=== PATIENT | female | born 1955 | race Caucasian/White ===

== ENCOUNTER → 2018-09-02 | Outpatient (CLI) | payer OTHER | LOC: MC.RAD 07:53 | DX: Z12.31 Encounter for screening mammogram for malignant neoplasm of breast (principal); Z98.890 Other specified postprocedural states ==

== ENCOUNTER → 2019-09-22 | Outpatient (CLI) | payer OTHER | LOC: MC.RAD 08:39 | DX: Z12.31 Encounter for screening mammogram for malignant neoplasm of breast (principal) ==

== ENCOUNTER → 2020-09-27 | Outpatient (CLI) | payer MEDICARE, OTHER | LOC: MC.RAD 09:29 | DX: Z12.31 Encounter for screening mammogram for malignant neoplasm of breast (principal) ==

== ENCOUNTER 2021-10-27 08:45 | Outpatient (CLI) | payer MEDICARE, OTHER ==
[2021-10-27] VITALS (8 sets, daily range): BP systolic 132–1362; BP diastolic 63–80; PULSE 50–84; TEMP 98.7
[2021-10-27] MEDS ORDERED: NORVASC 5MG5 MG/TAB PO (09:44)
[2021-10-27] MEDS ORDERED: XALATAN EYE DROPS OD (09:45)
[2021-10-27] MEDS ORDERED: PROZAC 10MG10 MG PO (09:45)
[2021-10-27] MEDS ORDERED: CALCIUM 600-D 61 TAB PO (09:46)
[2021-10-27] MEDS ORDERED: VITAMIN B12 1541 TAB PO (09:46)
[2021-10-27] MEDS ORDERED: MAGNESIUM ELEM300 MG PO (09:46)
== END 2021-10-27 11:00 | disposition home or self-care (01) ==
LOC: EUO 08:45
DX: U07.1 COVID-19 (principal)
CPT/HCPCS: M0245

== ENCOUNTER 2022-01-02 16:44 | Emergency (ER) | payer MEDICARE, OTHER ==
[~2022-01-02] VITALS: Ht 172.7 cm; Wt 84.1 kg
[~2022-01-02 16:44] MED LIST: CALCIUM 600-D 61 TAB PO; MAGNESIUM ELEM300 MG PO; NORVASC 5MG5 MG/TAB PO; PROZAC 10MG10 MG PO; VITAMIN B12 1541 TAB PO; XALATAN EYE DROPS OD
[2022-01-02 16:51] VITALS: TEMP 98.4
[2022-01-02 17:42] LABS: BASO % 0.5 % (0.0-2.0); EOS # 0.1 K/mm3 (0.0-0.7); EOS % 1.6 % (0.0-4.0); GRAN # 5.3 K/mm3 (1.4-6.5); GRAN % 72.9 % (42.2-75.2); HEMOGLOBIN 10.3 g/dl (12.5-16.0); LYMPH # 1.5 K/mm3 (1.2-3.4); MEAN CELL VOLUME 92 fl (80.0-100.0); MEAN CORPUSCULAR HEMOGLOBIN 29 pg (27-31); MEAN CORPUSCULAR HGB CONC 32 g/dl (33.0-37.0); MEAN PLATELET VOLUME 10.3 fl (7.4-10.4); MONO # 0.4 K/mm3 (0.1-0.6); MONO % 4.9 % (1.7-9.3); PLATELET COUNT 254 K/mm3 (130-400); RED BLOOD COUNT 3.52 M/mm3 (4.10-5.30); REDCELL DISTRIBUTION WIDTH-CV 13.1 % (11.5-14.5)
[2022-01-02 17:51] LABS: HEMATOCRIT 32.2 % (37.0-47.0)
[2022-01-02 18:04] LABS: ALBUMIN 3.8 gm/dL (3.4-4.8); BILIRUBIN,TOTAL 0.2 mg/dL (0.2-1.2); CALCIUM 8.9 mg/dL (8.4-10.2); CREATININE, serum 0.81 mg/dL (0.57-1.11); POTASSIUM 3.6 mmol/L (3.5-4.5); TOTAL PROTEIN 7.1 gm/dL (6.2-8.1)
[2022-01-02 20:23] VITALS: BP 112/53; PULSE 74
== END 2022-01-02 20:23 | disposition short-term general hospital (02) ==
LOC: COL.ER 16:44
PROVIDERS: Family Medicine
DX: S72.401B Unspecified fracture of lower end of right femur, initial encounter for open fracture type I or II (principal); I10 Essential (primary) hypertension; Z96.651 Presence of right artificial knee joint; Z98.890 Other specified postprocedural states; Z79.899 Other long term (current) drug therapy
CPT/HCPCS: J0690; J1170

== ENCOUNTER → 2022-01-12 | Outpatient (CLI) | payer MEDICARE, OTHER ==
[~2022-01-12] MED LIST changes: +B-121000 MCG PO; +DULCOLAX STOOL100 MG PO; +EXCEDRIN1 TAB PO; +FLEXERIL 1010 MG/TAB PO; +FLOMAX 0.40.4 MG/CAP PO; +GOOD SENSE SLEE25 M1 PO; +LOVENOX 4040 MG/0.4 SQ; +MIRALAX PA17 GM/Dose PO; +PROTONIX 40MG T40 MG PO; +ROXICODONE 55 MG/TAB PO; +SYSTANE 0.4%-0.1 SOL OP; +VIACTIV PO; +VITAMIN D31000 IU PO
[2022-01-12 15:23] LABS: COLLECTION METHOD CATHETER
[2022-01-12 15:52] LABS: PH 7 (5-8); SQUAMOUS EPITHELIAL None Seen /hpf (0-10); URINE APPEARANCE Clear (CLEAR/HAZY); URINE BACTERIA None Seen /hpf (NONE SEEN); URINE BILIRUBIN Negative (NEGATIVE); URINE BLOOD 1+ (NEGATIVE); URINE COLOR Yellow (YELLOW); URINE GLUCOSE Negative (NEGATIVE); URINE KETONE Negative (NEGATIVE); URINE LEUKOCYTE ESTERASE Negative (NEGATIVE); URINE NITRATE Negative (NEGATIVE); URINE PROTEIN(semi-quant) Negative (NEGATIVE); URINE RBC 0-2 /hpf (0-2); URINE UROBILINOGEN Negative (NEGATIVE); URINE WBC 0-2 /hpf (0-2)
== END ==
LOC: ZLAB.STJ 14:40
PROVIDERS: Family Medicine
DX: D62 Acute posthemorrhagic anemia (principal)

== ENCOUNTER 2022-01-17 00:13 | Inpatient (IN) | payer MEDICARE, OTHER ==
[~2022-01-17] VITALS: Ht 172.7 cm; Wt 86.0 kg
[~2022-01-17 00:13] MED LIST changes: -B-121000 MCG PO; -DULCOLAX STOOL100 MG PO; -EXCEDRIN1 TAB PO; -FLEXERIL 1010 MG/TAB PO; -FLOMAX 0.40.4 MG/CAP PO; -GOOD SENSE SLEE25 M1 PO; -LOVENOX 4040 MG/0.4 SQ; -MIRALAX PA17 GM/Dose PO; -PROTONIX 40MG T40 MG PO; -ROXICODONE 55 MG/TAB PO; -SYSTANE 0.4%-0.1 SOL OP; -VIACTIV PO; -VITAMIN D31000 IU PO
[2022-01-17 00:48] LABS: BASO % 0.2 % (0.0-2.0); EOS % 0.3 % (0.0-4.0); GRAN % 81.1 % (42.2-75.2); LYMPH # 1.4 K/mm3 (1.2-3.4); LYMPH % 11.3 % (20.0-51.0); MEAN CELL VOLUME 91 fl (80.0-100.0); MEAN CORPUSCULAR HGB CONC 33 g/dl (33.0-37.0); MEAN PLATELET VOLUME 9.3 fl (7.4-10.4); MONO # 0.8 K/mm3 (0.1-0.6); MONO % 6.5 % (1.7-9.3); PLATELET COUNT 712 K/mm3 (130-400); RED BLOOD COUNT 2.81 M/mm3 (4.10-5.30)
[2022-01-17 00:52] LABS: HEMATOCRIT 25.5 % (37.0-47.0); HEMOGLOBIN 8.3 g/dl (12.5-16.0); MEAN CORPUSCULAR HEMOGLOBIN 30 pg (27-31)
[2022-01-17 01:01] LABS: COLLECTION METHOD CLEAN CATCH
[2022-01-17 01:03] LABS: ALANINE AMINOTRANSFERASE 33 U/L (0-55); ALBUMIN 2.6 gm/dL (3.4-4.8); ALKALINE PHOSPHATASE 154 U/L (40-150); ANION GAP 11 mmol/L (7-16); AST,SGOT 41 U/L (5-34); BILIRUBIN,TOTAL 1.1 mg/dL (0.2-1.2); BLOOD UREA NITROGEN 13 mg/dL (10-20); CALCIUM 8.8 mg/dL (8.4-10.2); CARBON DIOXIDE 23 mmol/L (23-31); CHLORIDE 96 mmol/L (98-107); CREATININE, serum 0.72 mg/dL (0.57-1.11); GLUCOSE 103 mg/dL (70-99); POTASSIUM 4.1 mmol/L (3.5-4.5); SODIUM 130 mmol/L (136-145)
[2022-01-17 01:05] LABS: PH 6 (5-8); URINE APPEARANCE Clear (CLEAR/HAZY); URINE BILIRUBIN Negative (NEGATIVE); URINE BLOOD 2+ (NEGATIVE); URINE COLOR Yellow (YELLOW); URINE GLUCOSE Negative (NEGATIVE); URINE KETONE Negative (NEGATIVE); URINE LEUKOCYTE ESTERASE Negative (NEGATIVE); URINE NITRATE Negative (NEGATIVE); URINE PROTEIN(semi-quant) Negative (NEGATIVE); URINE UROBILINOGEN Negative (NEGATIVE)
[2022-01-17 01:05] LABS: C-REACTIVE PROTEIN 33.22 mg/dL (0.00-0.50); TROPONIN-I < 0.010 ng/mL (0.00-0.033)
[2022-01-17 01:07] LABS: MUCOUS Present (NOT PRESENT); SQUAMOUS EPITHELIAL 0-2 /hpf (0-10); URINE BACTERIA None Seen /hpf (NONE SEEN)
[2022-01-17] MEDS ORDERED: DULCOLAX STOOL100 MG PO (04:20)
[2022-01-17] MEDS ORDERED: MIRALAX PA17 GM/Dose PO (04:20)
[2022-01-17] MEDS ORDERED: LOVENOX 4040 MG/0.4 SQ (04:21)
[2022-01-17] MEDS ORDERED: ROXICODONE 55 MG/TAB PO (04:21)
[2022-01-17] MEDS ORDERED: FLEXERIL 1010 MG/TAB PO (04:21)
[2022-01-17] MEDS ORDERED: FLOMAX 0.40.4 MG/CAP PO (04:21)
[2022-01-17] MEDS ORDERED: VITAMIN D31000 IU PO (04:22)
[2022-01-17] MEDS ORDERED: EXCEDRIN1 TAB PO (04:22)
[2022-01-17] MEDS ORDERED: VIACTIV PO (04:22)
[2022-01-17] MEDS ORDERED: GOOD SENSE SLEE25 M1 PO (04:23)
[2022-01-17] MEDS ORDERED: B-121000 MCG PO (04:23)
[2022-01-17] MEDS ORDERED: PROTONIX 40MG T40 MG PO (04:24)
[2022-01-17] MEDS ORDERED: SYSTANE 0.4%-0.1 SOL OP (04:24)
--- NOTE | 2022-01-17 05:30 | NUR ---
Admitted to medical floor from ER- VSS, has bilateral swelling to lower ext-states pain 2/10 at this time when not moving- slight redness noted to LLE, Right leg undressed by DINORA griffith- has 5 small gauze dressings to incisions over right knee, also small gauze dressing upper right thigh- all dry and intact- occlusive dressing on over the gauze- able to wiggle toes, good CMS bilaterally, [place] to DD with clear yellow urine. O2 at 2L/nc. Iv fluids of NS at 125cc/hr.
[2022-01-17 05:51] VITALS: BP 114/58; PULSE 80; TEMP 98.8
[2022-01-17 07:12] VITALS: BP 105/71; PULSE 77; TEMP 98.4
--- NOTE | 2022-01-17 09:09 | NUR ---
PT RESTING IN BED. MORNING MEDICATIONS GIVEN. SHIFT ASSESSMENT COMPLETED. PT REPORTING MODERATE PAIN AT THIS TIME. PT IS TIRED AND STATES SHE HASN'T SLEPT IN THE PAST 24 HOURS AND WISHES WE WOULD LEAVE HER ALONE. ELECTRIC GAS APPLIANCES DEMONSTRATOR WITH THIS RN AT TIME OF ASSESSMENT, PT VERY UNHAPPY TO HAVE A STUDENT WORKING WITH HER. DENIES NEEDS AT THIS TIME. NS RUNNING THROUGH IV AT 125ML/HR. CONTINUING TO MONITOR.
--- NOTE | 2022-01-17 09:29 | NUR ---
CORAL confirmed with Chandler at [facility] that the patient has been at their facility for a skilled stay. CORAL attempted to meet with the patient to discuss discharge plan. The patient was sleeping and would not wake. CORAL attempted to contact the patient's son, Trevon (ph#[phone]). CORAL left him a voicemail. CORAL then contacted the patient's daughter, Petra Castaneda (ph#[phone]), to complete intake. The patient has been residing at [facility] for a skilled stay since 01/10/22. Her PCP is Dr. Kelsea Mack. Petra states that she is unsure if the patient has a DPOA-HC and will have to check with her brother. She reports that the patient is and has two children: herself and Trevon. Petra reports that the plan is for the patient to return back to [facility] upon discharge to resume her SNF stay. CORAL notified Chandler at [facility]. CORAL to fax updates to [facility]. *Discharge plan: [facility] SNF*
--- NOTE | 2022-01-17 10:57 | NUR ---
THIS RN NOTIFIED BY STUDENT NURSE, KIKI, THAT PATIENT DID NOT APPEAR TO BE ALIVE. THIS RN ENTERED ROOM AND FOUND PATIENT WITH NO PULSE. CONTACTED FEEDER OPERATORWILMAR. PRADEEP TREVIÑO CALLED CODE. COMPRESSIONS STARTED AT 1002. PER PRADEEP SYEDDUDE RANCH MANAGER... 1003 EPI 1004 SWITCH COMPRESSIONS, PADS AND BACKBOARD PLACED 1006 EPI, NS RUNNING IV SWITCHED TO WIDE OPEN 1008 PULSE CHECK, EPI 1011 EPI 1014 EPI 1017 TIME OF CALLED BY DR. BUCHANAN AND DR. HOLGUIN THIS RN, STUDENT NURSE, AND NURSE AID PERFORMED POST MORTEM CARE. DID NOT REMOVE WELSH CATHETER OR IV PER ORDERS FROM YAHAIRA.
--- NOTE | 2022-01-17 11:08 | NUR ---
Sales Floor Team Leader called to confirm that this patient did not need an autopsy. They state that the patient does not need autopsy since she is two weeks out from her hip surgery.
--- NOTE | 2022-01-17 11:08 | NUR ---
INSTRUCTED BY YULIA, HEAD OF PRECISION TARGETING TO PLACE EYE DROPS IN PATIENTS EYE, REMOVE ICE, AND ELEVATE HOB TO 30 DEGREES.
--- NOTE | 2022-01-17 11:09 | NUR ---
[facility] called at this time. Referral Number is [id number]. Will await a call back from account executive sales representative.
--- NOTE | 2022-01-17 14:39 | NUR ---
Update received from [facility]. They will be doing paperwork with the family at 15:00 for eye and tissue donation. [facility] will call me when they are on their way to lemon picker the body and take to [place] for procurement.
--- NOTE | 2022-01-17 15:21 | NUR ---
The patient . Executive Secretary Social Welfare was notified and [facility] contacted. The patient is a candidate and the patient's family is interested in donation. [facility] will be coming to pickling operator the patient's body. The patient's family's preferred home was [facility] in [place].
--- NOTE | 2022-01-17 21:56 | NUR ---
Body released to [facility] at 1999. Belongings sent with.
== END 2022-01-17 20:00 | disposition expired | DRG 299 ==
LOC: COL.ER 00:13 → MEDICAL 02:57
PROVIDERS: Emergency Medicine; ADMIT Student in an Organized Health Care Education/Training Program
DX: I82.403 Acute embolism and thrombosis of unspecified deep veins of lower extremity, bilateral (principal); J96.01 Acute respiratory failure with hypoxia; J98.11 Atelectasis; R33.9 Retention of urine, unspecified; K59.03 Drug induced constipation; M19.90 Unspecified osteoarthritis, unspecified site; G25.81 Restless legs syndrome; F32.A Depression, unspecified; D64.9 Anemia, unspecified; I10 Essential (primary) hypertension; M17.0 Bilateral primary osteoarthritis of knee; T40.605A Adverse effect of unspecified narcotics, initial encounter; K21.9 Gastro-esophageal reflux disease without esophagitis; S72.401D Unspecified fracture of lower end of right femur, subsequent encounter for closed fracture with routine healing; I46.9 Cardiac arrest, cause unspecified; Z96.651 Presence of right artificial knee joint; Z20.822 Contact with and (suspected) exposure to COVID-19
CPT/HCPCS: 99222-AI; 99223-AI; A4314; J0696; J1650; J2543; J3370; J7030; J7050; J7120; Q9967